=== PATIENT | male | born 1960 | race Caucasian/White ===

== ENCOUNTER 2017-09-30 10:02 | Emergency (ER) | payer OTHER ==
[~2017-09-30] VITALS: Ht 167.6 cm; Wt 70.8 kg
[2017-09-30 10:09] VITALS: BP 149/90
--- NOTE | 2017-09-30 10:15 | NUR ---
57Y/M C/O EDILMA KNEE PAIN X 2 WEEKS; NON TRAUMATIC; HX: NONE. ALLERIES: NKA. PATIENT STATES PAIN OF 8/10 AT THIS TIME; PATIENT POSITIONED FOR COMFORT; ER MD MADE AWARE OF PT STATUS.
--- NOTE | 2017-09-30 10:34 | NUR ---
Patient being evaluated by physician at bedside.
[2017-09-30 11:01] VITALS: BP 145/89
--- NOTE | 2017-09-30 11:01 | NUR ---
Patient discharged with v/s stable. Written and verbal after care instructions given and explained. Patient alert, oriented and verbalized understanding of instructions. Ambulatory with steady gait. All questions addressed prior to discharge. ID band removed. Patient advised to follow up with PMD. Rx of NAPROSYN 375MG given. Patient educated on indication of medication including possible reaction and side effects. Opportunity to ask questions provided and answered.
== END 2017-09-30 11:01 | disposition home or self-care (01) ==
LOC: MED 10:02
DX: S83.91XA Sprain of unspecified site of right knee, initial encounter (principal); X58.XXXA Exposure to other specified factors, initial encounter; Y93.89 Activity, other specified; Y92.89 Other specified places as the place of occurrence of the external cause; Y99.8 Other external cause status
CPT/HCPCS: 73562; 99284

== ENCOUNTER 2017-10-15 09:16 | Inpatient (IN) | payer OTHER ==
[~2017-10-15] VITALS: Ht 170.2 cm; Wt 68.9 kg
[2017-10-15 09:27] VITALS: BP 102/59
--- NOTE | 2017-10-15 09:30 | NUR ---
PT TAKEN TO BED 3 IN A W/C AT THIS TIME.
--- NOTE | 2017-10-15 09:32 | NUR ---
57 YO M BIB FAMILY W/ C/O EXCRUTIATING LOWER LEFT LEG PAIN AND SWELLING ACCOMPANIED BY RASH/REDNESS. PAIN 10/10, RADIATES FROM LEFT LEG UP TO LEFT ARM/HAND INTERMITTENTLY. SHARP, HOT PAIN. PT REPORTS HE WAS HERE ABOUT 2 WEEKS AGO WITH LESS SEVERE LEG PAIN COMPLAINT AND RECEIVED NAPROXIN BUT THAT CAUSED BLOOD IN HIS STOOL SO HE STOPPED TAKING IT ABOUT 4 DAYS AGO. PT A&O X 4. GCS 15. PT UNSTEADY ON HIS FEET, CAME INTO ED VIA W/C DUE TO PAIN. RR EVEN AND UNLABORED. LUNG SOUNDS BILATERALLY CLEAR. ABD SOFT, NON-TENDER. LEFT LEG SWELLING NOTED FROM KNEE DOWN TO ANKLE. NON-PITTING. SKIN IS WARM AND DRY TO THE TOUCH. RED RASH/PATCHES NOTED TO SKIN. PULSES PRESENT AND PALPABLE. CAP REFILL LESS THAN 3 SECONDS. PT DENIES FEVER/CHILLS, N/V/D AT THIS TIME. ER MD NGUYEN NOTIFIED. SAFETY PRECAUTIONS IN PLACE. PT NEEDS MET. WILL CONTINUE TO MONITOR.
[2017-10-15] MEDS ORDERED: KETOROLAC 30 MG/ML VIAL IM ONE (10:00)
[2017-10-15 10:49] LABS: HEMATOCRIT 32.7 % (36-52); HEMOGLOBIN 10.5 g/dL (12.0-18.0); MEAN CORPUSCULAR HEMOGLOBIN 25 pg (27-31); MEAN CORPUSCULAR HGB CONC 32 g/dL (33-37); MEAN CORPUSCULAR VOLUME 79.1 fL (80-94); RED BLOOD CELL COUNT(AUTO) 4.13 MIL/uL (4.20-6.10); RED CELL DISTRIBUTION WIDTH 14.3 % (11.6-13.7); WHITE BLOOD COUNT (AUTO) 15.3 K/uL (4.8-10.8)
[2017-10-15 10:57] LABS: ANION GAP 11.1 (8-16); CARBON DIOXIDE 27.6 mmol/L (21-32); CREATININE 0.7 mg/dL (0.7-1.3); PLATELET COUNT (AUTO) 781 K/uL (140-450); POTASSIUM 4.7 mmol/L (3.5-5.1)
[2017-10-15 11:01] LABS: PROTHROMBIN TIME 11.3 secs (10.8-13.4)
[2017-10-15 11:02] LABS: EOSINOPHILS % (MANUAL) 1 % (0-4); LYMPHOCYTES % (MANUAL) 8 % (20-46); MONOCYTES % (MANUAL) 6 % (5-12)
[2017-10-15 11:03] LABS: ALBUMIN 2.1 g/dL (3.4-5.0); TOTAL BILIRUBIN 0.3 mg/dL (0.0-1.0)
[2017-10-15] MEDS ORDERED: CLINDAMYCIN 600 MG in DEXTROSE 5% 50 ML IV ONE (11:40)
[2017-10-15] MEDS ORDERED: CLINDAMYCIN 600 MG/4 ML VIAL ONE (12:01)
[2017-10-15 13:00] VITALS: BP 100/52
--- NOTE | 2017-10-15 13:00 | NUR ---
PATIENT ADMITTED FROM ER. PATIENT WHEELED IN WHEELCHAIR BY ER NURSE. BEDSIDE REPORT GIVEN. PATIENT IS AWAKE, ALERT AND ORIENTEDX4. NO SIGNS OF DISTRESS ON ROOM AIR. NO COMPLAINTS AT THIS TIME. IS AT BEDSIDE. VITALS ARE STABLE. BLE REDNESS WITH DX OF L LEG CELLULITIS. PATIENT IS AMBULATORY. HE IS HUNGRY, TOLD HIM HE HAS TO WAIT FOR THE DOCTORS ORDERS BEFORE EATING. BED IN LOW POSITION. CALL LIGHT WITHIN REACH. WILL CONTINUE TO MONITOR THE PATIENT.
--- NOTE | 2017-10-15 13:00 | NUR ---
Patient will be admitted to care of [facility]. Admited to Med-Surg. Will go to room 125B. Belongings list completed. Report given to MST RN. Pt tolerated transition well.
--- NOTE | 2017-10-15 14:30 | NUR ---
AT BEDSIDE. PATIENT SHOWS NO SIGNS OF DISTRESS ON ROOM AIR. BED IN LOW POSITION. CALL LIGHT WITHIN REACH, WILL CONTINUE TO MONITOR THE PATIENT.
[2017-10-15] MEDS ORDERED: ONDANSETRON 4 MG/2 ML VIAL IVP PRN (15:10)
[2017-10-15 16:00] VITALS: BP 107/51
[2017-10-15] MEDS: NACL 0.9% 1,000 ML IV SCH (16:18)
--- NOTE | 2017-10-15 16:25 | NUR ---
ADMINISTERED PRN PAIN MED FOR 9/10 PAIN. IV IS CLEAN, DRY AND INTACT. PATIENT TOLERATING MED WELL. NO COMPLAINTS AT THIS TIME. WILL CONTINUE TO MONITOR THE PATIENT,.
[2017-10-15] MEDS: MORPHINE SULFATE 4 MG/ML SYR IVP PRN (16:26)
--- NOTE | 2017-10-15 17:47 | NUR ---
ADMINISTERED MED ORDERED. IV IS CLEAN, DRY AND INTACT. PATIENT TOLERATING MED WELL. NO COMPLAINTS AT THIS TIME. PATIENT IS SITTING IN BED TALKING ON THE PHONE. BED IN LOW POSITION. WILL CONTINUE TO MONITOR THE PATIENT.
--- NOTE | 2017-10-15 19:10 | NUR ---
GAVE BEDSIDE REPORT TO PHOTO PRODUCER NURSE. PATIENT ENDORSED IN STABLE CONDITION
--- NOTE | 2017-10-15 19:30 | NUR ---
ASSUMED CARE OF PATIENT, AWAKE, ALERT AND ORIENTED. NO COMPLAINS. STABLE CONDITION. CALL LIGHT WITHIN REACH.
--- NOTE | 2017-10-15 20:00 | NUR ---
PLAN OF CARE DISCUSSED WITH PATIENT AND FAMILY MEMBER AT BEDSIDE, VERBALIZED UNDERSTANDING WELL. CALL LIGHT WITHIN REACH. CARE BOARD UPDATED.
[2017-10-15] MEDS: CLINDAMYCIN 600 MG in DEXTROSE 5% 50 ML IV SCH (20:55)
[2017-10-15] MEDS: ACETAMINOPHEN 325 MG TAB PO PRN (23:18)
--- NOTE | 2017-10-16 00:01 | NUR ---
T-101, TYLENOL AND COOLING MEASURES RENDERED. CALL LIGHT WITHIN REACH. BP WNL. CARE BOARD UPDATED.
[2017-10-16 00:02] VITALS: BP 112/56
--- NOTE | 2017-10-16 00:40 | NUR ---
T-98.8, SLEEPING WELL, EASILY AROUSABLE. NO COMPLAINS. CALL LIGHT WITHIN REACH.
[2017-10-16] MEDS: CLINDAMYCIN 600 MG in DEXTROSE 5% 50 ML IV SCH ×3 (04:29→20:26)
[2017-10-16 06:30] LABS: BASOPHILS # (AUTO) 0.1 K/uL (0.00-0.22); BASOPHILS % (AUTO) 0.4 % (0.0-2.0); EOSINOPHILS # (AUTO) 0.3 K/uL (0-0.4); EOSINOPHILS % (AUTO) 2.5 % (0.0-4.0); HEMATOCRIT 29.3 % (36-52); HEMOGLOBIN 9.6 g/dL (12.0-18.0); LYMPHOCYTES # (AUTO) 2.2 K/uL (2.0-11.5); LYMPHOCYTES % (AUTO) 18.6 % (20.5-51.1); MEAN CORPUSCULAR HEMOGLOBIN 26 pg (27-31); MEAN CORPUSCULAR HGB CONC 33 g/dL (33-37); MEAN CORPUSCULAR VOLUME 78.9 fL (80-94); MONOCYTES # (AUTO) 1.8 K/uL (0.8-1.0); MONOCYTES % (AUTO) 14.9 % (1.7-9.3); NEUTROPHILS # (AUTO) 7.6 K/uL (1.8-7.7); NEUTROPHILS % (AUTO) 63.6 % (42.2-75.2); PLATELET COUNT (AUTO) 724 K/uL (140-450); RED BLOOD CELL COUNT(AUTO) 3.72 MIL/uL (4.20-6.10); RED CELL DISTRIBUTION WIDTH 14.5 % (11.6-13.7)
[2017-10-16] MEDS: NACL 0.9% 1,000 ML IV SCH (06:36)
[2017-10-16 07:04] LABS: ALBUMIN 1.6 g/dL (3.4-5.0); ANION GAP 10.8 (8-16); CARBON DIOXIDE 25.6 mmol/L (21-32); CREATININE 0.8 mg/dL (0.7-1.3); POTASSIUM 3.4 mmol/L (3.5-5.1); TOTAL BILIRUBIN 0.3 mg/dL (0.0-1.0)
--- NOTE | 2017-10-16 07:29 | NUR ---
ENDORSED CARE AT BEDSIDE WITH ROLAND RN, PATIENT IN STABLE CONDITION.
--- NOTE | 2017-10-16 07:30 | NUR ---
RECEIVED REPORT FROM NATIONAL GUARD MEMBER RN. PATIENT IS SLEEPING BUT AWAKES UPON CALLING NAME. HAS NO SIGNS AND SYMPTOMS OF ACUTE DISTRESS NOTED AT THIS TIME. HAS IV TO THE RIGHT AC 20G, INFUSING NS AT 75 ML/HR. SITE IS CLEAN, DRY, PATENT AND INTACT. HAS CELLULITIS TO THE LEFT LEG, SKIN IS INTACT. BED IN LOWEST POSITION, SIDE RAILS UP X2, CALL LIGHT WITHIN REACH. WILL CONTINUE TO MONITOR.
[2017-10-16 08:00] VITALS: BP 109/53
--- NOTE | 2017-10-16 09:56 | NUR ---
PATIENT HAS BEEN SCREENED AND CATEGORIZED LOW NUTRITION RISK. PATIENT WILL BE SEEN WITHIN 7 DAYS OF ADMISSION. 10/22/[address]
[2017-10-16] MEDS: ENOXAPARIN 40 MG/0.4 ML SYR SUBQ SCH (09:59)
--- NOTE | 2017-10-16 11:39 | NUR ---
CM NOTE INITIAL REVIEW FAXED TO [facility] [phone] KATHERINE # [phone]
[2017-10-16] MEDS ORDERED: POTASSIUM CHLORIDE 10 MEQ TABER PO SCH (15:00)
[2017-10-16 16:00] VITALS: BP 105/53
[2017-10-16] MEDS: MORPHINE SULFATE 4 MG/ML SYR IVP PRN ×2 (16:19→20:27)
--- NOTE | 2017-10-16 19:30 | NUR ---
RECEIVED PT REPORT FROM DAY SHIFT FOR CONTINUITY OF CARE. PT AAO X4. NO SOB, NO S/S OF DISTRESS, WILL CONTINUE TO MONITOR. ON ROOM AIR. NO COMPLAINTS OF PAIN AT THIS TIME. BED LOWERED CALL LIGHT WITHIN REACH WILL CONTINUE TO MONITOR,.
--- NOTE | 2017-10-16 22:34 | NUR ---
RECEIVED PHONE CALL FROM LAB PT POSITIVE FOR MRSA. WILL PUT ON PRECAUTIONS.
[2017-10-17 00:06] VITALS: BP 136/61
--- NOTE | 2017-10-17 00:09 | NUR ---
PT IS AWAKE AND RESTING WATCHING TV NO SOB. NO S/S OF DISTRESS. ON RA. WILL CONTINUE TO MONITOR.
--- NOTE | 2017-10-17 02:37 | NUR ---
PT IS SLEEPING. NO SOB, NO S/S OF DISTRESS. PT ON RA. WILL CONTINUE TO MONITOR.
[2017-10-17 04:00] VITALS: BP 101/56
[2017-10-17] MEDS: CLINDAMYCIN 600 MG in DEXTROSE 5% 50 ML IV SCH (04:31)
--- NOTE | 2017-10-17 05:07 | NUR ---
ASSESSED PT PT IS ASLEEP. EASILY AROUSE AND AOX3. NO SOB NO S/S OF DISTRESS.
[2017-10-17 05:43] LABS: BASOPHILS # (AUTO) 0.1 K/uL (0.00-0.22); BASOPHILS % (AUTO) 0.5 % (0.0-2.0); EOSINOPHILS # (AUTO) 0.4 K/uL (0-0.4); EOSINOPHILS % (AUTO) 4.5 % (0.0-4.0); HEMATOCRIT 27.7 % (36-52); HEMOGLOBIN 9.2 g/dL (12.0-18.0); LYMPHOCYTES % (AUTO) 19.7 % (20.5-51.1); MEAN CORPUSCULAR HEMOGLOBIN 26 pg (27-31); MEAN CORPUSCULAR HGB CONC 33 g/dL (33-37); MEAN CORPUSCULAR VOLUME 78.2 fL (80-94); MONOCYTES # (AUTO) 1.4 K/uL (0.8-1.0); MONOCYTES % (AUTO) 13.5 % (1.7-9.3); NEUTROPHILS # (AUTO) 6.2 K/uL (1.8-7.7); NEUTROPHILS % (AUTO) 61.8 % (42.2-75.2); PLATELET COUNT (AUTO) 679 K/uL (140-450); RED BLOOD CELL COUNT(AUTO) 3.54 MIL/uL (4.20-6.10); RED CELL DISTRIBUTION WIDTH 14.4 % (11.6-13.7)
[2017-10-17 06:39] LABS: ALBUMIN 1.6 g/dL (3.4-5.0); ANION GAP 11.1 (8-16); CARBON DIOXIDE 26.3 mmol/L (21-32); CREATININE 0.7 mg/dL (0.7-1.3); POTASSIUM 3.4 mmol/L (3.5-5.1); TOTAL BILIRUBIN 0.2 mg/dL (0.0-1.0)
--- NOTE | 2017-10-17 07:32 | NUR ---
GAVE REPORT TO DAY SHIFT NURSE FOR CONTINUITY OF CARE.
--- NOTE | 2017-10-17 07:33 | NUR ---
RECEIVED REPORT FROM GEOGRAPHIC INFORMATION SYSTEM SURVEYOR RN. PATIENT IS SLEEPING BUT AWAKES UPON CALLING NAME. HAS NO SIGNS AND SYMPTOMS OF ACUTE DISTRESS NOTED AT THIS TIME. HAS IV TO THE RIGHT AC 20G, SALINE LOCK AT THIS TIME. SITE IS CLEAN, DRY, PATENT AND INTACT. HAS CELLULITIS TO THE LEFT LEG, SKIN IS INTACT. BED IN LOWEST POSITION, SIDE RAILS UP X2, CALL LIGHT WITHIN REACH. WILL CONTINUE TO MONITOR.
[2017-10-17 08:00] VITALS: BP 104/55
[2017-10-17] MEDS ORDERED: MUPIROCIN 2% OINT 22 GM TUBE TP SCH (09:00)
[2017-10-17] MEDS ORDERED: CHLORHEXADINE GLUC 2% CLOTH TP SCH (09:00)
[2017-10-17] MEDS: ENOXAPARIN 40 MG/0.4 ML SYR SUBQ SCH (09:57)
--- NOTE | 2017-10-17 12:35 | NUR ---
CM NOTE CONCURRENT REVIEW FAXED TO [facility] [phone] KATHERINE # [phone]
[2017-10-17] MEDS ORDERED: CLINDAMYCIN PHOS. 600MG/D5W PM 50 ML IV SCH (13:00)
--- NOTE | 2017-10-17 13:50 | NUR ---
CALLED THE PHYSICAL THERAPY DEPARTMENT AND LEFT A MESSAGE. THERE IS IN AN ORDER FOR PT EVALUATION SO WANTED TO MAKE PHYSICAL THERAPY AWARE.
[2017-10-17] MEDS ORDERED: POTASSIUM CHLORIDE 10 MEQ TABER PO SCH (14:30)
--- NOTE | 2017-10-17 15:12 | NUR ---
SPOKE WITH [facility] LEGAL ASSISTANT REGARDING ORDER FOR PT, STATED THAT THE THERAPISTS ARE ALREADY GONE FOR THE DAY BUT THEY CAN MAKE THIS PT A PRIORITY TOMORROW. SPOKE WITH [place] AND WILL CONTACT DR. TOMPKINS REGARDING THIS ISSUE.
--- NOTE | 2017-10-17 15:40 | NUR ---
Patient will have a walker, spoke to Sofia at [facility]. Patient will have home PT. spoke to Renee at [facility] and faxed order. Spoke to Amisha at [facility] and was faxed the order and will call for Auth.
[2017-10-17 16:00] VITALS: BP 105/54
--- NOTE | 2017-10-17 16:24 | NUR ---
BRAD NOTE PER JESSIKA OF [facility], THEY CANNOT TAKE PATIENT BECAUSE IT'S UNDER [facility]. PER JENNY ULRICH, SHE SPOKE WITH PATIENT AND PATIENT HAS NO PREFERENCE FOR A SPECIFIC HH. FAXED ORDER TO [facility] INCLUDING INFORMATION ON ACCEPTING AND LEFT MESSAGE TO BRAD JOE #[phone]. NO CALL BACK. PER DONALDO OF [facility]# [phone] THEY ARE ACCEPTING PATIENT BUT HAS TO GET AUTHORIZATION FROM [facility]. I GAVE HER THE NUMBER TO [facility] AND SHE SAID SHE WILL FOLLOW UP WITH THE AUTHORIZATION. Addendum: 10/17/17 at 1638 by Meghana Khan CM FAXED ORDER TO [facility] INCLUDING INFORMATION ON ACCEPTING [facility]
--- NOTE | 2017-10-17 16:27 | NUR ---
THESE TANNING CONSULTANT SEND HOME HEALTH REQUEST WELL PATIENT CLINICAL INFORMATION WAS SEND VIA FAXED TO [facility] WITH FAXED CONFIRMATION.
--- NOTE | 2017-10-17 18:59 | NUR ---
TOOK PATIENTS TEMPERATURE AND IT IS 100.0. ADMINISTERED TYLENOL AND PAGED RADIATION PROTECTION ENGINEER DOCTOR FOR DR TOMPKINS.
[2017-10-17] MEDS: ACETAMINOPHEN 325 MG TAB PO PRN (19:02)
--- NOTE | 2017-10-17 19:03 | NUR ---
SPOKE WITH DR GALLO TO INFORM HIM THAT PATIENT HAS LOW GRADE FEVER, ADMINISTERED TYLENOL. PATIENT HAS DISCHARGE ORDER IN PLACE AND [facility]. HE STATED TO MONITOR THE PATIENT FOR THE NEXT HOUR TO HOUR AND A HALF. IF FEVER BREAKS THEN OK TO SEND HOME.
--- NOTE | 2017-10-17 19:30 | NUR ---
RECEIVED PT REPORT AT BEDSIDE FOR CONTINUITY OF CARE. PT IS AAOX4. PT HAS ORDERS FOR DISCHARGE IF NO FEVER. WILL CONTINUE TO MONITOR.
--- NOTE | 2017-10-17 19:32 | NUR ---
ENDORSED PATIENT TO ARMORED CAR DRIVER RN FOR CONTINUITY OF CARE. PATIENT IN STABLE CONDITION.
--- NOTE | 2017-10-17 20:30 | NUR ---
PT HAS NO FEVER WILL DISCHARGE PT.
--- NOTE | 2017-10-17 21:55 | NUR ---
PT DISCHARGE LEFT FLOOR WITH EMERY GRINDER. IN WHEELCHAIR.
== END 2017-10-17 21:55 | disposition home health service (06) | DRG 720 ==
LOC: MED 09:16 → MMU 11:56
PROVIDERS: ADMIT Hospitalist; ATTEND Hospitalist
DX: A41.9 Sepsis, unspecified organism (principal); E43 Unspecified severe protein-calorie malnutrition; L03.116 Cellulitis of left lower limb; D47.3 Essential (hemorrhagic) thrombocythemia; M17.12 Unilateral primary osteoarthritis, left knee; Z79.899 Other long term (current) drug therapy
CPT/HCPCS: 36415; 73562; 80053; 83605; 85025; 85610; 85730; 87040; 87081; 93970; 96365; 96372; 99285; J0696; J1650; J1885; J2270; J3490; J7030; J7060; Q0092

== ENCOUNTER 2017-10-24 14:03 | Emergency (ER) | payer OTHER ==
[~2017-10-24] VITALS: Ht 165.1 cm; Wt 68.9 kg
[2017-10-24 14:07] VITALS: BP 100/57
--- NOTE | 2017-10-24 14:13 | NUR ---
PT AMBULATED TO BED 3
--- NOTE | 2017-10-24 14:32 | NUR ---
PATIENT PRESENTS TO ED WITH instructed to enter er by pmd ---lab draw yesterday, was told severe anemia pt appearance mild pale, denies fatigue, dizziness, or sob---- at bedside--- pitting edema to ble knees down, pain---pt admits intermittent swelling x 1 month +2 radial pulse <3sec cap refill .has been taking keflex and clindamycin x 1 wk DENIES N/V/D; SKIN IS mild pale/WARM/DRY; AAOX4 WITH EVEN AND STEADY GAIT; LUNGS CLEAR BL; HR EVEN AND REGULAR; PT DENIES ANY FEVER, CP, SOB, OR COUGH AT THIS TIME; PATIENT STATES PAIN OF 7/10 AT THIS TIME; VSS; PATIENT POSITIONED FOR COMFORT; HOB ELEVATED; BEDRAILS UP X2; BED DOWN. ER MD MADE AWARE OF PT STATUS.
[2017-10-24 15:21] LABS: APPEARANCE,URINE CLEAR (CLEAR); BILIRUBIN,URINE NEGATIVE (NEGATIVE); BLOOD, URINE 1+ (NEGATIVE); COLOR,URINE YELLOW (YELLOW); LEUKOCYTE ESTERASE ,URINE NEGATIVE (NEGATIVE); NITRITE, URINE NEGATIVE (NEGATIVE); PH,URINE 5.5 (5.0-9.0); UGLUCOSE NEGATIVE (NEGATIVE)
[2017-10-24 15:24] LABS: BASOPHILS # (AUTO) 0.1 K/uL (0.00-0.22); EOSINOPHILS # (AUTO) 0.4 K/uL (0-0.4); EOSINOPHILS % (AUTO) 5.6 % (0.0-4.0); HEMATOCRIT 28.8 % (36-52); HEMOGLOBIN 9.3 g/dL (12.0-18.0); LYMPHOCYTES # (AUTO) 1.5 K/uL (2.0-11.5); LYMPHOCYTES % (AUTO) 19.3 % (20.5-51.1); MEAN CORPUSCULAR HEMOGLOBIN 25 pg (27-31); MEAN CORPUSCULAR HGB CONC 32 g/dL (33-37); MEAN CORPUSCULAR VOLUME 78.2 fL (80-94); MONOCYTES # (AUTO) 0.7 K/uL (0.8-1.0); MONOCYTES % (AUTO) 9.1 % (1.7-9.3); RED BLOOD CELL COUNT(AUTO) 3.68 MIL/uL (4.20-6.10); RED CELL DISTRIBUTION WIDTH 14.8 % (11.6-13.7); WHITE BLOOD COUNT (AUTO) 7.7 K/uL (4.8-10.8)
[2017-10-24] MEDS ORDERED: HYDROcodone/APAP 5/325 MG 1 TAB TAB PO ONE (15:25)
[2017-10-24 15:26] LABS: PLATELET COUNT (AUTO) 758 K/uL (140-450)
[2017-10-24 15:38] LABS: ALBUMIN 2.2 g/dL (3.4-5.0); ANION GAP 12.9 (8-16); CARBON DIOXIDE 25.7 mmol/L (21-32); CREATININE 0.8 mg/dL (0.7-1.3); POTASSIUM 4.6 mmol/L (3.5-5.1); TOTAL BILIRUBIN 0.2 mg/dL (0.0-1.0)
--- NOTE | 2017-10-24 15:54 | NUR ---
pt. resting comfortably on bed, rr even and unlabored, aaox4. bed in lowest position. Will continue to monitor.
[2017-10-24 16:11] LABS: RBC,URINE 3-10 (FEW) /HPF (0-5); WBC,URINE 0-5 (RARE) /HPF (0-5)
[2017-10-24 16:46] VITALS: BP 100/56
== END 2017-10-24 16:46 | disposition home or self-care (01) ==
LOC: MED 14:03
DX: D50.0 Iron deficiency anemia secondary to blood loss (chronic) (principal); D47.3 Essential (hemorrhagic) thrombocythemia; E88.09 Other disorders of plasma-protein metabolism, not elsewhere classified; R60.0 Localized edema; M17.0 Bilateral primary osteoarthritis of knee
CPT/HCPCS: 36415; 80053; 81001; 85025; 85610; 85730; 86886; 86900; 86901; 93005; 99285